=== PATIENT | female | born 1935 | race Caucasian/White ===

== ENCOUNTER 2018-01-08 09:53 | Day surgery (SDC) | payer OTHER, MEDICARE ==
[2018-01-08] MEDS ORDERED: PROPOFOL 200 MG/20 ML VIAL IV ONE (11:11)
[2018-01-08] MEDS ORDERED: LIDOCAINE 2% MPF 5 ML VIAL ONE (11:11)
[2018-01-08] MEDS ORDERED: FENTANYL CITR 100 MCG/2 ML ONE (11:12)
[2018-01-08] MEDS ORDERED: ONDANSETRON 4 MG/2 ML VIAL ONE (11:12)
[2018-01-08 11:28] LABS: Absolute Lymphocytes (CBC) 1.4 K/uL (0.7-4.9); Absolute Monocytes 0.7 K/uL (0.1-1.3); Absolute Neutrophil 6.8 K/uL (1.8-8.0); Basophils % 0.9 % (0-1.3); Eosinophils % 1.7 % (0-4.4); Hematocrit 38.9 % (36.0-45.0); Lymphocytes % 14.9 % (15.3-44.8); MCH 30.6 pg (27.0-35.0); MCV 94.1 fL (80-100); MPV 8.8 fL (7.6-11.3); Monocytes % 8.2 % (3.3-12.3); RBC Red Blood Cell Count 4.14 M/uL (3.86-4.86)
[2018-01-08 11:43] LABS: Potassium 3.9 mmol/L (3.5-5.1)
[2018-01-08] MEDS ORDERED: CEFAZOLIN/SWI 1gm 1 GM/10 ML SYR ONE (11:57)
[2018-01-08] MEDS ORDERED: BUPIVACAINE 0.5% PF 10 ML VIAL ONE (11:57)
[2018-01-08] MEDS ORDERED: Ringers Lactate 1,000 ML IV ONE (11:57)
--- NOTE | 2018-01-08 12:26 | RAD REPORT ---
EXAM DESCRIPTION: Hattie Diaz And Coral (2 Views)01/08/2018 11:41 am CLINICAL HISTORY: Preop COMPARISON: 2014 FINDINGS: An approximately 4 centimeter right upper lobe opacity has developed. Postsurgical changes involve the chest. The heart is mildly enlarged. Interstitial lung opacities johnson ear chronic. IMPRESSION: 4 centimeter right upper lobe opacity may represent neoplasm. CT is recommended
--- NOTE | 2018-01-08 12:55 | EKG ---
Test Date: 2018-01-08 Test Time: 11:10:53 [employer] Technician: KADI MEASUREMENT RESULTS: Intervals: Rate: 57 WA: 150 QRSD: 92 QT: 468 QTc: 455 [place]: P: 9 WA: 150 QRS: 25 T: 10 INTERPRETIVE STATEMENTS: Sinus bradycardia RSR' or QR pattern in V1 suggests right ventricular conduction delay Nonspecific ST and T wave abnormality Abnormal ECG Compared to ECG 11/20/2013 07:35:16 Sinus arrhythmia no longer present ST (T wave) deviation still present Electronically Signed On 01-08-18 12:54:51 CDT by Eduardo Adams
--- NOTE | 2018-01-08 13:00 | P.BOP ---
Preoperative diagnosis: infected back subcutanous mass Postoperative diagnosis: same Primary procedure: Excisional biopsy of infected back subcutanous mass 4x4 cm Estimated blood loss: <10cc Specimen: mass, culture Findings: infected back subcutanous mass Anesthesia: General Complications: None Drain(s): Other Transferred to: Recovery Room Condition: Good
[2018-01-08 15:03] VITALS: BP 154/61; TEMP 98.3; O2SAT 100
--- NOTE | 2018-01-08 21:18 | OP ---
Date of Procedure: 01/08/2018 Surgeon: Aureliano Alcala MD Chute Man: None. Preoperative Diagnosis: Posterior infected back subcutaneous mass, 4 x 4 cm. Postoperative Diagnosis: Posterior infected back subcutaneous mass, 4 x 4 cm. Procedure: Excisional biopsy of infected back subcutaneous mass, 4 x 4 cm. Estimated Blood Loss: Less than 10 cc. Specimen: Mass and culture. Finding: Infected back subcutaneous mass, deep, going all the way down to fascia of the muscle and d oes not penetrate the muscle. Packing: Wet-to-dry. Iv Fluids: Normal saline. Indications: This is a case of an 82-year-old patient, comes to us with a back mass. It is erythema tous, red, and tender despite twice being treated with p.o. antibiotics sessions. Benefits, alternat nathaniel, and risks of excision were fully explained to the patient, which include, but are not limited t o infection, bleeding, damage to adjacent structures, anesthesia complication, nonhealing wound, SD, and even . She also understands this may not relieve any of her symptoms. She might need more than one surgical intervention. She understood. Signed a consent. The area of concern was marked b y me and the patient in the holding room. Description Of Procedure: The patient was brought to the operating room, placed in supine position. Anesthesia was done without complication. Back area was prepped and draped in a sterile fashion. T he patient was placed in lateral decubitus position with proper protection. A wedge incision was mad e on the skin to include the skin and the mass. This incision was carried down deep to subcutaneous tissue at least 3 cm deep that goes border by the fascia. The fascia seems to be infected, but it do es not penetrate the muscle. The area was removed. The area was irrigated. Hemostasis obtained and the area was packed with wet-to-dry dressing. The patient tolerated the procedure well. The patien t was sent to recovery room in stable condition. EZIO/ADELE Voice ID: [id number] Report ID: [id number]
--- NOTE | 2018-01-08 21:18 | OP ---
Surgeon: Aureliano Alcala MD Diagnosis: Infected back subcutaneous mass. Procedure: Excisional biopsy of infected back subcutaneous mass. Disposition: Home. Activity: As tolerated. No heavy lifting. Followup: Follow up in my office in 1 week. Call for appointment [phone]. Keep area dry until rebeca orrow with dry dressing and normal saline will be use. We recommend the patient to have home health agency since she cannot get access to that area, although she has a family member who can do this for her. Medications: Include Bactrim DS p.o. b.i.d. and Ultracet q.4 hours p.r.n. pain. Since she has aller gies to codeine, but not Ultracet. EZIO/ADELE Voice ID: [id number] Report ID: [id number]
== END 2018-01-08 14:35 | disposition home or self-care (01) ==
LOC: PRE 09:53 → OR 14:35
PROVIDERS: ATTEND Surgery
PROC: 0HB6XZZ Excision of Back Skin, External Approach (ICD-10-PCS; principal; 2018-01-08 12:45)
DX: C44.529 Squamous cell carcinoma of skin of other part of trunk (principal); I10 Essential (primary) hypertension; I25.10 Atherosclerotic heart disease of native coronary artery without angina pectoris; D64.9 Anemia, unspecified; E78.2 Mixed hyperlipidemia; Z87.891 Personal history of nicotine dependence; Z88.7 Allergy status to serum and vaccine; Z88.6 Allergy status to analgesic agent; Z95.1 Presence of aortocoronary bypass graft; Z86.73 Personal history of transient ischemic attack (TIA), and cerebral infarction without residual deficits; Z80.9 Family history of malignant neoplasm, unspecified; Z83.3 Family history of diabetes mellitus
CPT/HCPCS: 11604; 36415; 71046; 80048; 85025; 87070; 87075; 87205; 88305; 93005; J0690; J2405; J3010; 80061; 80076